=== PATIENT | female | born 1985 | race Caucasian/White ===

== ENCOUNTER 2019-07-11 05:59 | Emergency (ER) | payer OTHER ==
[~2019-07-11] VITALS: Ht 170.2 cm; Wt 90.9 kg
[2019-07-11 06:09] VITALS: BP 116/68
== END 2019-07-11 06:43 | disposition home or self-care (01) ==
LOC: EMS 05:59
DX: J11.1 Influenza due to unidentified influenza virus with other respiratory manifestations (principal); Z88.1 Allergy status to other antibiotic agents